=== PATIENT | female | born 1950 | race Caucasian/White ===

== ENCOUNTER → 2019-12-06 | Outpatient (CLI) | payer MEDICARE ==
--- NOTE | 2019-12-06 13:32 | Diagnostic Imaging Report ---
INDICATION: Postmenopausal screening for osteoporosis. COMPARISON: None. FINDINGS: AP Spine L1-L4: [BMD (g/cm2): 1.264] [T-Score: 0.5] [Z-Score: 1.0] [BMD Previous: na] [BMD % Change: na] LT Hip Neck: [BMD (g/cm2): 0.922] [T-Score: -0.8] [Z-Score: 0.0] LT Hip Total: [BMD (g/cm2):1.141] [T-Score:1.1] [Z-Score: 1.6] [BMD Previous: na] [BMD % Change: na] RT Hip Neck: [BMD (g/cm2):1.062] [T-Score:0.2] [Z-Score:1.0] RT Hip Total: [BMD (g/cm2):1.239] [T-score:1.8] [Z-Score:2.4] [BMD Previous:na] [BMD % Change:na] *Indicates significant change from prior examination based on 95% confidence level. World Health Organization criteria for BMD interpretation classify patients as Normal (T-score at or above -1.0), Osteopenic (T-score between -1.0 and -2.5) or Osteoporotic (T-score at or below -2.5). LIMITATIONS AND MODIFICATION: None. FRACTURE RISK (FRAX SCORE): The ten year probability of (%): Major Osteoporotic Fracture: [na] Hip Fracture: [na] IMPRESSION: 1. Normal bone mineral density. 2. Baseline examination. 3. See below National Osteoporosis Foundation guidelines on when to potentially initiate pharmacologic therapy. Based on the National Osteoporosis Foundation Guidelines, pharmacologic treatment should be initiated in any of the following, unless clinical conditions suggest otherwise: * Any patient with prior fragility fracture of the hip or vertebrae. A spine fracture indicates 5X risk for subsequent spine fracture and 2X risk for subsequent hip fracture. * Osteoporosis (T-score <-2.5). * Postmenopausal women and men age 50 and older with low bone mass/osteopenia (T-score between -1.0 and -2.5) by DXA and 10-year major osteoporotic fracture greater than 20% or a 10-year probability of hip fracture greater than 3%. These fracture risks are supplied above in the FRAX score, if applicable. * Clinician judgement and/or patient preferences may indicate treatment for people with 10-year fracture probabilities above or below these levels. Dictated by: Dictated on workstation # [id number]
== END ==
LOC: RAD 12:09
PROVIDERS: ATTEND Nurse Practitioner
DX: Z13.820 Encounter for screening for osteoporosis (principal); M81.0 Age-related osteoporosis without current pathological fracture; Z78.0 Asymptomatic menopausal state
CPT/HCPCS: 77080

== ENCOUNTER 2021-11-16 00:41 | Emergency (ER) | payer MEDICARE ==
[2021-11-16 01:32] LABS: BASOPHILS % (AUTO) 1 % (0-10); EOSINOPHILS % (AUTO) 2 % (0-10); HEMATOCRIT 41 % (35-52); HEMOGLOBIN 13.5 g/dL (11.5-16.0); LYMPHOCYTES % (AUTO) 21 % (12-44); MEAN CORPUSCULAR HEMOGLOBIN 28 pg (25-34); MEAN CORPUSCULAR HGB CONC 33 g/dL (32-36); MEAN CORPUSCULAR VOLUME 84 fL (80-99); MEAN PLATELET VOLUME 8.8 fL (9.0-12.2); MONOCYTES % (AUTO) 9 % (0-12); NEUTROPHILS % (AUTO) 67 % (42-75); PLATELET COUNT 372 10^3/uL (130-400); WHITE BLOOD COUNT 9.2 10^3/uL (4.3-11.0)
[2021-11-16 01:33] LABS: BASOPHILS # (AUTO) 0.1 10^3/uL (0.0-0.1); EOSINOPHILS # (AUTO) 0.2 10^3/uL (0.0-0.3); LYMPHOCYTES # (AUTO) 1.9 X 10^3 (1.0-4.0); MONOCYTES # (AUTO) 0.9 X 10^3 (0.0-1.0); NEUTROPHILS # (AUTO) 6.2 X 10^3 (1.8-7.8)
[2021-11-16 01:53] LABS: ALANINE AMINOTRANSFERASE 20 U/L (0-55); ALBUMIN 4.5 GM/DL (3.2-4.5); ALKALINE PHOSPHATASE 73 U/L (40-136); BILIRUBIN,TOTAL 0.5 MG/DL (0.1-1.0); BUN/CREATININE RATIO 20; CALCIUM 9.5 MG/DL (8.5-10.1); CARBON DIOXIDE 27 MMOL/L (21-32); CHLORIDE 92 MMOL/L (98-107); CREATININE SERUM 0.85 MG/DL (0.60-1.30); GFR ESTIMATED 74; GLUCOSE 110 MG/DL (70-105); POTASSIUM 4.1 MMOL/L (3.6-5.0); SODIUM 131 MMOL/L (135-145); TOTAL PROTEIN 7.6 GM/DL (6.4-8.2)
--- NOTE | 2021-11-16 01:57 | ED Back Pain ---
General Chief Complaint: Back Problems Stated Complaint: BACK PAIN Nursing Triage Note: Pt complaining of mid upper back pain that started last night Source of Information: Patient Exam Limitations: No Limitations History of Present Illness Date Seen by Provider: Nov 16, 2021 Time Seen by Provider: 01:15 Initial Comments Patient is a 71-year-old female with history of hypertension morbid obesity who presents with midline lower thoracic back pain starting several hours prior to arrival. Pain is midline and is nonradiating, nonmigratory and is currently rated as mild. Patient denies trauma recent repetitive strain activity. Pain is worse with palpation and deep breathing. Patient denies shortness of breath, cough, sore throat and fever. She denies leg pain or swelling. Denies anterior chest pain. No medications or therapies taken prior to ED arrival. No history of CAD, DVT, PE cancer or recent illness. Location: T-Spine Timing/Duration: Other Severity: Mild Pain/Injury Location: Other Radiation: Other Method of Injury: Other Modifying Factors: Improves With Other Associated Symptoms: other Allergies and Home Medications Allergies Coded Allergies: montelukast (Verified Allergy, Unknown, 11/16/21) Patient Home Medication List Home Medication List Reviewed: No Review of Systems Constitutional: see HPI EENTM: see HPI Respiratory: see HPI Cardiovascular: see HPI Gastrointestinal: see HPI Genitourinary: see HPI Musculoskeletal: see HPI Skin: see HPI Psychiatric/Neurological: See HPI All Other Systems Reviewed Negative Unless Noted: No Past Kaoenyf-Ulxlvs-Pyqvke Hx Patient Social History Tobacco Use?: No Use of E-Cig and/or Vaping dev: No Substance use?: No Alcohol Use?: No Pt feels they are or have been: No Physical Exam Vital Signs Vital Signs - First Documented 11/16/21 01:04 Temp 36.8 Pulse 73 Resp 18 B/P (MAP) 179/85 (116) Pulse Ox 100 O2 Delivery Room Air Capillary Refill : Less Than 3 Seconds Height, Weight, BMI Height: '" Weight: lbs. oz. kg; BMI Method: General Appearance: No Apparent Distress, WD/WN HEENT: PERRL/EOMI, Normal ENT Inspection Neck: Full Range of Motion, Normal Inspection, Non Tender Cardiovascular: Regular Rate, Rhythm, No Edema Respiratory: Chest Non Tender, Lungs Clear, Normal Breath Sounds Back: No CVA Tenderness (R); Other (Lower thoracic, paravertebral pain/tenderness) Neurologic/Psychiatric: Alert, Oriented x3 Progress/Results/Core Measures Results/Orders Lab Results Laboratory Tests Test 11/16/21 01:25 Range/Units White Blood Count 9.2 4.3-11.0 10^3/uL Red Blood Count 4.87 3.80-5.11 10^6/uL Hemoglobin 13.5 11.5-16.0 g/dL Hematocrit 41 35-52 % Mean Corpuscular Volume 84 80-99 fL Mean Corpuscular Hemoglobin 28 25-34 pg Mean Corpuscular Hemoglobin Concent 33 32-36 g/dL Red Cell Distribution Width 13.2 10.0-14.5 % Platelet Count 372 130-400 10^3/uL Mean Platelet Volume 8.8 L 9.0-12.2 fL Neutrophils (%) (Auto) 67 42-75 % Lymphocytes (%) (Auto) 21 12-44 % Monocytes (%) (Auto) 9 0-12 % Eosinophils (%) (Auto) 2 0-10 % Basophils (%) (Auto) 1 0-10 % Neutrophils # (Auto) 6.2 1.8-7.8 X 10^3 Lymphocytes # (Auto) 1.9 1.0-4.0 X 10^3 Monocytes # (Auto) 0.9 0.0-1.0 X 10^3 Eosinophils # (Auto) 0.2 0.0-0.3 10^3/uL Basophils # (Auto) 0.1 0.0-0.1 10^3/uL D-Dimer 0.50 H 0.00-0.49 UG/ML Sodium Level 131 L 135-145 MMOL/L Potassium Level 4.1 3.6-5.0 MMOL/L Chloride Level 92 L 98-107 MMOL/L Carbon Dioxide Level 27 21-32 MMOL/L Anion Gap 12 5-14 MMOL/L Blood Urea Nitrogen 17 7-18 MG/DL Creatinine 0.85 0.60-1.30 MG/DL Estimat Glomerular Filtration Rate 74 BUN/Creatinine Ratio 20 Glucose Level 110 H 70-105 MG/DL Calcium Level 9.5 8.5-10.1 MG/DL Corrected Calcium 9.1 8.5-10.1 MG/DL Total Bilirubin 0.5 0.1-1.0 MG/DL Aspartate Amino Transf (AST/SGOT) 19 5-34 U/L Alanine Aminotransferase (ALT/SGPT) 20 0-55 U/L Alkaline Phosphatase 73 40-136 U/L Troponin I < 0.30 <0.30 NG/ML Total Protein 7.6 6.4-8.2 GM/DL Albumin 4.5 3.2-4.5 GM/DL My Orders Orders - REFUGIO HERNÁNDEZ DO Cbc With Automated Diff (11/16/21 01:09) Comprehensive Metabolic Panel (11/16/21 01:09) Ekg Tracing (11/16/21 01:09) Troponin I Fs (11/16/21 01:09) Chest 1 View Ap/Pa Only (11/16/21 01:09) Fibrin Degradation Products (11/16/21 01:09) Hydrocodone/Apap 5/325 Tablet (Lortab 5 (11/16/21 02:00) Clonidine Tablet (Catapres Tablet) (11/16/21 02:00) Troponin I Fs (11/16/21 02:23) Medications Given in ED Current Medications Medications Dose Ordered Sig/Becka Route Start Time Stop Time Status Last Admin Dose Admin Acetaminophen/ Hydrocodone Bitart 1 ea ONCE ONCE PO 11/16/21 02:00 11/16/21 02:01 DC 11/16/21 01:53 1 EA Clonidine HCl 0.2 mg ONCE ONCE PO 11/16/21 02:00 11/16/21 02:01 DC 11/16/21 01:53 0.2 MG Vital Signs/I&O 11/16/21 01:04 Temp 36.8 Pulse 73 Resp 18 B/P (MAP) 179/85 (116) Pulse Ox 100 O2 Delivery Room Air Blood Pressure Mean: 116 Departure Communication (Admissions) Chest x-ray: No acute cardiopulmonary disease on preliminary ED review. EKG: Normal sinus rhythm, normal ND, QRS, QTc intervals. No acute ST-T wave changes. Patient with reproducible back pain worse with deep breathing and palpation and movement. Patient noted to be hypertensive. She is compliant with home blood pressure medication states blood pressure is normally well controlled. She does not endorse chest pain shortness of breath leg pain swelling or exertional symptoms. She does not have fever, cough or sore throat. EKG and troponin are negative. Age-adjusted D-dimer negative. High blood pressure and neck pain addressed in the emergency department with clinical improvement. Suspect musculoskeletal pain versus atypical coronary equivalent. Will obtain repeat troponin anticipate discharge home if negative with watchful waiting and close follow-up with PCP for further management. Discharge instructions and return precautions to be reviewed with the patient prior to departure. Impression Primary Impression: Thoracic back pain Disposition: HOME, SELF-CARE Condition: Stable Departure-Patient Inst. Decision time for Depature: 03:30 Referrals: NO,LOCAL PHYSICIAN (PCP/Family) Primary Care Physician Patient Instructions: Upper Back Pain ED Add. Discharge Instructions: You were evaluated in the emergency department for upper back pain. An EKG lab and imaging studies were obtained and are nondiagnostic. The exact cause of your symptoms cannot be determined. Please take Tylenol or ibuprofen for pain avoid strenuous physical activity and heavy lifting. You may take Flexeril as needed for additional relief. Follow-up with your PCP early next week for reevaluation. Return to the ED if new or worsening symptoms peer All discharge instructions reviewed with patient and/or family. Voiced understanding. Scripts Cyclobenzaprine HCl (Cyclobenzaprine HCl) 10 Mg Tablet 10 MG PO TID, #21 TAB Prov: REFUGIO HERNÁNDEZ DO 11/16/21 REFUGIO HERNÁNDEZ DO Nov 16, 2021 01:57
[2021-11-16] MEDS ORDERED: HYDROcodone/APAP 5 MG/325 MG (LORTAB) TAB PO ONE (02:00)
[2021-11-16] MEDS ORDERED: cloNIDine 0.2 MG (CATAPRES) TAB PO ONE (02:00)
[2021-11-16] MEDS ORDERED: CYCL10TA25 PO (02:56)
[2021-11-16 03:48] VITALS: BP 120/78
--- NOTE | 2021-11-16 07:23 | Diagnostic Imaging Report ---
EXAMINATION: Chest 1 view HISTORY: Chest pain COMPARISON: None available. FINDINGS: The lungs are clear without edema or pneumonia. No pleural effusion or pneumothorax. Heart size is normal. IMPRESSION: 1. Clear lungs. Dictated by: Dictated on workstation # [id number]
== END 2021-11-16 03:50 | disposition home or self-care (01) ==
LOC: EDUNIT# 00:41 → ER FS 00:44
DX: M54.6 Pain in thoracic spine (principal); I10 Essential (primary) hypertension; E66.01 Morbid (severe) obesity due to excess calories; Z28.310 Unvaccinated for COVID-19
CPT/HCPCS: 36415; 71045; 80053; 84484; 85025; 85379; 93005